=== PATIENT | female | born 1975 | race African-American/Black ===

== ENCOUNTER 2020-04-12 08:00 | Day surgery (SDC) | payer BC ==
[2020-04-12 08:12] VITALS: BMI 23.8
[2020-04-12 08:16] VITALS: TEMP 98.5
[2020-04-12 10:41] VITALS: BP 114/76; PULSE 66
--- NOTE | 2020-04-15 12:06 | PATH ---
Surgical Pathology Report Patient Name: RIDDHI COULTER [facility]. Rec. #: [id number] /Age/Gender: 1975 (Age: 44) / F Account: [id number] Location: [facility] Taken: 04/12/2020 Received: 04/12/2020 Reported: 04/15/2020 Physicians: Shawn Thibodeaux M.D. Specimen(s) Received A: CECUM B: RIGHT COLON C: TRANSVERSE COLON D: LEFT COLON E: SIGMOID COLON F: RECTO SIGMOID COLON G: RECTUM Clinical History History of ulcerative colitis Postoperative diagnosis: distal ulcerative colitis Final Diagnosis A. CECUM, BIOPSY: COLONIC MUCOSA SHOWING BENIGN/REACTIVE LYMPHOID AGGREGATES. NEGATIVE FOR COLITIS AND DYSPLASIA. B. RIGHT COLON, BIOPSY: COLONIC MUCOSA SHOWING BENIGN/REACTIVE LYMPHOID AGGREGATE. NEGATIVE FOR COLITIS AND DYSPLASIA. C. TRANSVERSE COLON, BIOPSY: COLONIC MUCOSA SHOWING BENIGN/REACTIVE LYMPHOID AGGREGATES. NEGATIVE FOR COLITIS AND DYSPLASIA. D. LEFT COLON, BIOPSY: COLONIC MUCOSA SHOWING SMALL BENIGN/REACTIVE LYMPHOID AGGREGATE. NEGATIVE FOR COLITIS AND DYSPLASIA. E. SIGMOID COLON, BIOPSY: SEVERE CHRONIC ACTIVE COLITIS WITH CRYPTITIS AND CRYPT MICROABSCESSES. NEGATIVE FOR DYSPLASIA. F. RECTOSIGMOID COLON, BIOPSY: SEVERE CHRONIC ACTIVE COLITIS WITH CRYPTITIS AND CRYPT MICROABSCESSES. NEGATIVE FOR DYSPLASIA. G. RECTUM, BIOPSY: SEVERE CHRONIC ACTIVE PROCTITIS WITH CRYPTITIS AND CRYPT MICROABSCESSES. NEGATIVE FOR DYSPLASIA. Electronically Signed Dennise Serna M.D. Gross Description A. Received in formalin, labeled "biopsy cecum" are 4 aldrich, irregular portions of soft tissue ranging from 0.1- 0.4 cm. in greatest dimension. The specimens are submitted in toto in one cassette. B. Received in formalin, labeled "biopsy right colon" are 2 aldrich, irregular portions of soft tissue measuring 0.2 and 0.3 cm. in greatest dimension. The specimens are submitted in toto in one cassette. C. Received in formalin, labeled "biopsy transverse colon" are 4 aldrich, irregular portions of soft tissue ranging from 0.2-0.4 cm. in greatest dimension. The specimens are submitted in toto in one cassette. D. Received in formalin, labeled "biopsy left colon" are 4 aldrich, irregular portions of soft tissue ranging from 0.2-0.3 the diagnosis cm. in greatest dimension. The specimens are submitted in toto in one cassette. E. Received in formalin, labeled "biopsy sigmoid colon" are 4 aldrich, irregular portions of soft tissue ranging from 0.2-0.4 cm. in greatest dimension. The specimens are submitted in toto in one cassette. F. Received in formalin, labeled "biopsy rectosigmoid colon" are 4 aldrich, irregular portions of soft tissue ranging from 0.2-0.3 cm. in greatest dimension. The specimens are submitted in toto in one cassette. G. Received in formalin, labeled "biopsy rectum" are 3 aldrich, irregular portions of soft tissue ranging from 0.3-0.5 cm. in greatest dimension. The specimens are submitted in toto in one cassette. DL04/13/2020 saudi04/13/2020
== END 2020-04-12 10:43 | disposition home or self-care (01) ==
LOC: FASU-ENDO 08:00
PROVIDERS: ATTEND Internal Medicine Gastroenterology
PROC: 0DBL8ZX Excision of Transverse Colon, Via Natural or Artificial Opening Endoscopic, Diagnostic (ICD-10-PCS; 2020-04-12)
PROC: 0DBN8ZX Excision of Sigmoid Colon, Via Natural or Artificial Opening Endoscopic, Diagnostic (ICD-10-PCS; 2020-04-12)
PROC: 0DBP8ZX Excision of Rectum, Via Natural or Artificial Opening Endoscopic, Diagnostic (ICD-10-PCS; 2020-04-12)
PROC: 0DBM8ZX Excision of Descending Colon, Via Natural or Artificial Opening Endoscopic, Diagnostic (ICD-10-PCS; 2020-04-12)
PROC: 0DBH8ZX Excision of Cecum, Via Natural or Artificial Opening Endoscopic, Diagnostic (ICD-10-PCS; 2020-04-12)
PROC: 0DBK8ZX Excision of Ascending Colon, Via Natural or Artificial Opening Endoscopic, Diagnostic (ICD-10-PCS; principal; 2020-04-12 09:32)
DX: K52.89 Other specified noninfective gastroenteritis and colitis (principal); K63.89 Other specified diseases of intestine
CPT/HCPCS: 84703; 88305-TC